=== PATIENT | male | born 1970 | race Caucasian/White ===

== ENCOUNTER 2016-11-01 04:48 | Emergency (ER) | payer BC, MEDICAID, OTHER ==
[~2016-11-01] VITALS: Ht 167.6 cm; Wt 88.0 kg
[2016-11-01 05:00] VITALS: Ht 167.6 cm; Wt 88.0 kg
[2016-11-01 05:05] VITALS: TEMP 98.3
[2016-11-01 05:38] LABS: BASOPHILS % 0.5 % (0.0-2.0); EOSINOPHILS # 0.1 10^3/ul (0.0-0.5); EOSINOPHILS % 1.4 % (0.0-7.0); HEMATOCRIT 43.6 % (42.0-52.0); LYMPHOCYTES # 1.6 10^3/ul (0.8-2.9); LYMPHOCYTES % 24.6 % (15.0-51.0); MEAN CORPUSCULAR HEMOGLOBIN 32.6 pg (29.0-33.0); MEAN CORPUSCULAR HGB CONC 34.4 g/dl (32.0-37.0); MEAN CORPUSCULAR VOLUME 94.8 fl (82.0-101.0); MEAN PLATELET VOLUME 9.9 fl (7.4-10.4); MONOCYTE # 0.8 10^3/ul (0.3-0.9); MONOCYTES % 11.9 % (0.0-11.0); NEUTROPHIL # 3.9 10^3/ul (1.6-7.5); NEUTROPHILS % 61.1 % (39.0-77.0); PLATELET COUNT 239 10^3/UL (140-415); RED CELL DISTRIBUTION WIDTH 12.5 % (11.5-14.5); WHITE BLOOD COUNT 6.3 10^3/ul (4.8-10.8)
[2016-11-01 06:04] LABS: ANION GAP 10 (8-16); BLOOD UREA NITROGEN 21 mg/dl (7-20); CARBON DIOXIDE 26 mmol/L (21-31); CHLORIDE 106 mmol/L (97-110); CREATININE 1.06 mg/dl (0.61-1.24); GLUCOSE 109 mg/dl (70-220); SODIUM 138 mmol/L (135-144)
[2016-11-01 06:20] LABS: TROPONIN-I < 0.012 ng/ml (0.00-0.12)
--- NOTE | 2016-11-01 06:34 | ERD ---
ER Documentation Chief Complaint Date/Time DATE: 11/01/16 TIME: 06:31 Chief Complaint Pt reports palpitations since yesterday HPI This is a 46-year-old male who presents to the emergency room for evaluation of heart palpitations. The patient states that he has had these symptoms for approximately 24 hours. He states that they are intermittent and lasts for up to a minute. The patient denies any excessive caffeine use, than the alcohol use or drug use. The patient denies any chest pain associated with this and came to the emergency room today for evaluation. ROS All systems reviewed and are negative except as per history of present illness. Medications Home Meds No Active Prescriptions or Reported Meds Allergies Allergies: Coded Allergies: No Known Allergy (Unverified , 11/01/16) PMhx/Soc Medical and Surgical Hx: pt denies Medical Hx, pt denies Surgical Hx Hx Alcohol Use: No Hx Substance Use: No Hx Tobacco Use: Yes Smoking Status: Current some day smoker Physical Exam Vitals Vital Signs Date Time Temp Pulse Resp B/P Pulse Ox O2 Delivery O2 Flow Rate FiO2 11/01/16 06:27 77 18 145/100 99 Room Air 11/01/16 05:05 98.3 88 18 171/111 98 Room Air 11/01/16 05:00 98.3 80 16 171/111 100 Physical Exam INITIAL VITAL SIGNS: Reviewed by me GENERAL: The patient is well developed and appropriate for usual state of health in no apparent distress HEENT: Pupils equal, round, and reactive to light. EOMI. There is no scleral icterus. NECK: C-spine is soft and supple, there is no meningismus. There is no cervical lymphadenopathy. LUNGS: Clear to auscultation bilaterally. There are no rales, wheezes or rhonchi. HEART: Regular rate and rhythm, no murmurs, clicks, rubs or gallops. ABDOMEN: Soft, non-tender, non-distended. There are bowel sounds in all four quadrants. No rebound or guarding. EXTREMITIES: There is no peripheral cyanosis or edema. No focal swelling or erythema. NEUROLOGICAL: The patient moves all four extremities with 5/5 strength. Cranial nerves II - XII are intact. Normal gait. Alert and oriented SKIN: There is no apparent rash or petechiae. HEME/LYMPHATIC: There is no evidence of excessive bruising or lymphedema. PSYCHIATRIC: The patient does not appear anxious or depressed. Result Diagram: 11/01/16 0515 11/01/16 0515 Results 24 hrs Laboratory Tests Test 11/01/16 05:15 White Blood Count 6.310^3/ul Red Blood Count 4.6010^6/ul Hemoglobin 15.0g/dl Hematocrit 43.6% Mean Corpuscular Volume 94.8fl Mean Corpuscular Hemoglobin 32.6pg Mean Corpuscular Hemoglobin Concent 34.4g/dl Red Cell Distribution Width 12.5% Platelet Count 45482^3/UL Mean Platelet Volume 9.9fl Neutrophils % 61.1% Lymphocytes % 24.6% Monocytes % 11.9% Eosinophils % 1.4% Basophils % 0.5% Nucleated Red Blood Cells % 0.0/100WBC Neutrophils # 3.910^3/ul Lymphocytes # 1.610^3/ul Monocytes # 0.810^3/ul Eosinophils # 0.110^3/ul Basophils # 0.010^3/ul Nucleated Red Blood Cells # 0.010^3/ul Sodium Level 138mmol/L Potassium Level 4.0mmol/L Chloride Level 106mmol/L Carbon Dioxide Level 26mmol/L Anion Gap 10 Blood Urea Nitrogen 21mg/dl Creatinine 1.06mg/dl Glucose Level 109mg/dl Calcium Level 9.0mg/dl Troponin I < 0.012ng/ml [facility] EKG: Rate/Rhythm: [Normal Sinus Rhythm] QRS, ST, T-waves: [No changes consistent w/ acute ischemia] Impression: [No evidence of ischemia or arrhythmia] Chest X-ray 1V Interpreted by me: Soft Tissue: No acute abnormalities Bones: No acute abnormalities Mediastinum/Cardiac Silhouette/Lungs: [No acute abnormalities] This 46-year-old male presents to the emergency room for evaluation of heart palpitations. When I evaluated this patient he was hemodynamically stable, nontoxic appearing, and in no acute distress. He was not hypoxic and had no palpitations on his initial EKG. Lab work was obtained to rule out any electrolyte abnormalities which could be contributing to this patient's symptoms and his lab work is within normal limits at this time. His troponin is negative and chest x-ray is clear. When I reevaluated this patient he was sitting in bed comfortably and had a heart rate of 62 bpm. He was slightly hypertensive and I did advise the patient that he will need to follow-up with his primary care physician for reevaluation of his hypertension. The patient will be started on a 10 day course of hydrochlorothiazide in the emergency room at this time. Patient's blood pressure was elevated (>120/80) but appears stable without evidence of hypertension emergency or urgency. The patient was counseled about the risks of hypertension and urged to pursue outpatient monitoring and therapy within a week with their primary care physician. Smoking Cessation Therapy: Pt. was lectured for greater than 3 minutes on the health risks of continued smoking and the benefits of cessation. Departure Diagnosis: Primary Impression: Heart palpitations Additional Impressions: Tobacco abuse Tobacco abuse counseling Hypertension Condition: Stable JEWEL CARVER DO Nov 01, 2016 06:34
[2016-11-01] MEDS ORDERED: HYDR25TA6 PO (06:35)
[2016-11-01 06:43] VITALS: BP 150/100; PULSE 78; RESP 18
--- NOTE | 2016-11-01 07:09 | RADRPT ---
PROCEDURE: XR Chest. CLINICAL INDICATION: Chest pain. TECHNIQUE: Single frontal view. COMPARISON: None. FINDINGS: The lungs are clear. The heart size is normal. There is no pleural effusion. There is no pneumothorax. IMPRESSION: 1. Normal chest radiograph. RPTAT: QQ .Ruiz Mccurdy MD, Date Time Electronically viewed and signed by .Ruiz Mccurdy MD, on 11/01/2016 07:09 .R/
== END 2016-11-01 06:45 | disposition home or self-care (01) ==
LOC: E/R 04:48
DX: R00.2 Palpitations (principal); F17.210 Nicotine dependence, cigarettes, uncomplicated; I10 Essential (primary) hypertension; Z71.6 Tobacco abuse counseling
CPT/HCPCS: 36415; 71010; 80048; 84484; 85025; 93005; Z7502

== ENCOUNTER 2018-02-15 10:47 | Emergency (ER) | payer SELFPAY ==
[~2018-02-15] VITALS: Ht 167.6 cm; Wt 95.8 kg
[~2018-02-15 10:47] MED LIST: HYDR25TA6 PO
[2018-02-15 10:51] VITALS: BP 165/110; PULSE 114; RESP 18; Ht 167.6 cm; Wt 95.8 kg
--- NOTE | 2018-02-15 11:35 | ERD ---
ER Documentation Chief Complaint Chief Complaint "i feel like there is something stuck in my throat" today HPI 47-year-old male, previously healthy, presents the emergency complaining of 2 days with sore throat with a foreign body sensation. Patient also reports upper respiratory symptoms for a week and he had a cold sore in the upper lip for 2 days. ROS All systems reviewed and are negative except as per history of present illness. Medications Home Meds Active Scripts Hydrochlorothiazide* (Hydrochlorothiazide*) 25 Mg Tab, 25 MG PO DAILY, #14 TAB Prov:JEWEL CARVER DO 11/01/16 Allergies Allergies: Coded Allergies: No Known Allergy (Unverified , 11/01/16) PMhx/Soc Medical and Surgical Hx: pt denies Surgical Hx Hx Miscellaneous Medical Probl: Yes (HTN) Hx Alcohol Use: Yes (week ends) Hx Substance Use: No Hx Tobacco Use: No Physical Exam Vitals Vital Signs Date Temp Pulse Resp B/P (MAP) Pulse Ox O2 O2 Flow FiO2 Time Delivery Rate 02/15/18 97.8 114 18 165/110 98 10:51 (128) Physical Exam Const: No acute distress Head: Atraumatic Eyes: Normal Conjunctiva ENT: Erythematous oropharynx, uvula enlarged, swollen, with significant erythema and a vesicular rash. Neck: Full range of motion. No meningismus. Resp: Clear to auscultation bilaterally Cardio: Regular rate and rhythm, no murmurs Abd: Soft, non tender, non distended. Normal bowel sounds Skin: No petechiae or rashes Back: No midline or flank tenderness Ext: No cyanosis, or edema Neur: Awake and alert Psych: Normal Mood and Affect Results 24 hrs Current Medications Medications Dose Sig/Noé Start Time Status Last (Trade) Ordered Route PRN Stop Time Admin Dose Reason Admin 30 mg ONCE ONCE 02/15/18 Prednisolone PO 12:00 (Prelone) 02/15/18 12:01 Procedures/MDM Differential diagnosis include: Pharyngitis, tonsillitis, GERD, tonsillar abscess. Clinical presentation and physical examination consistent with oral HSV with significant uvular edema. No evidence of foreign body. No shortness of breath, no upper airway obstruction. If symptoms persist, worsen or new symptoms develop, then patient should return to the ED immediately. Instructions explained and given to patient in Wallisian with acknowledgment and demonstrated understanding. Disclaimer: Inadvertent spelling and grammatical errors are likely due to EHR/dictation software use and do not reflect on the overall quality of patient care. Also, please note that the electronic time recorded on this note does not necessarily reflect the actual time of the patient encounter. Departure Diagnosis: Primary Impression: Primary HSV infection of mouth Additional Impression: Uvular edema Condition: Stable Additional Instructions: Muchas shannon por [facility] para navarrete servicio. Esperamos que en navarrete visita a la renzo de emergencia navarrete problema medico haya sido solucionado y que se sienta mucho mejor. Para estar seguros que navarrete mejoria sigue en proceso, le pedimos el favor de hacer keira taty de seguimiento medico con navarrete doctor primario en los proximos 2-4 high. Lleve con usted estos documentos y las medicinas recetadas. Si francisca sintomas empeoran, NO SE ESPERE, por favor regrese a renzo de emergencia INMEDIATAMENTE. En avinash que usted no tenga un mdico de atencin primaria: Llame al mdico o clnica comunitaria de referencia que aparece abajo kartik las horas de consultorio para hacer keira taty para que le vean. CLINICAS: [facility] [phone] [facility] [phone] [facility] [phone] [facility] [phone] [address] [place] [phone] [facility]. [phone] [place] Feb 15, 2018 11:35
[2018-02-15] MEDS ORDERED: predniSOLONE (3 MG/ML) CUP PO ONE (12:00)
[2018-02-15] MEDS ORDERED: IBUP-1561 PO (12:03)
[2018-02-15] MEDS ORDERED: ACYC800T5 PO (12:03)
== END 2018-02-15 12:11 | disposition home or self-care (01) ==
LOC: FTE 10:47
DX: B00.9 Herpesviral infection, unspecified (principal); R22.0 Localized swelling, mass and lump, head; I10 Essential (primary) hypertension
CPT/HCPCS: 99283; J7510